=== PATIENT | male | born 1950 | race Caucasian/White ===

== ENCOUNTER 2023-08-28 20:55 | Emergency (ER) | payer OTHER ==
[2023-08-28] MEDS ORDERED: Acetaminophen 500 MG TAB ONE (21:50)
[2023-08-28] MEDS ORDERED: Boostrix 0.5 ML (Tdap) VIAL (>/=7 yrs of age) ONE (21:50)
== END 2023-08-29 00:30 | disposition home or self-care (01) ==
LOC: CSHERS 20:55
DX: S06.0X0A Concussion without loss of consciousness, initial encounter (principal); I10 Essential (primary) hypertension; M10.9 Gout, unspecified; W18.30XA Fall on same level, unspecified, initial encounter
CPT/HCPCS: 70450; 72125; 90471; 90715; 93005; 93010